=== PATIENT | female | born 1980 | race Caucasian/White ===

== ENCOUNTER 2019-11-01 10:18 | Day surgery (SDC) | payer MEDICAID ==
[~2019-11-01] VITALS: Ht 157.5 cm; Wt 63.2 kg
[~2019-11-01 10:18] MED LIST: RINGERS SOLUTION,LACTATED 1,000 ML IV ONE
[2019-11-01] MEDS ORDERED: PROPOFOL 1% 20 ML VIAL IVP ONE (10:19)
[2019-11-01] MEDS ORDERED: KETAMINE HCL 50 MG/ML 10 ML VIAL IVP ONE (10:19)
[2019-11-01] MEDS ORDERED: LIDOCAINE/PF 2% 5 ML VIAL IM ONE (10:19)
[2019-11-01] MEDS ORDERED: FentaNYL CITRATE-PF 100 MCG/2 ML VIAL IVP ONE (10:19)
[2019-11-01] MEDS ORDERED: MIDAZOLAM HCL 2 MG/2 ML VIAL IVP ONE (10:19)
[2019-11-01] MEDS ORDERED: RINGERS SOLUTION,LACTATED 1,000 ML IV ONE (10:45)
[2019-11-01 11:15] LABS: BASOPHILS % (AUTO) 0.5 % (0.0-2.0); EOSINOPHILS % (AUTO) 3.1 % (1.0-6.0); HEMATOCRIT 38.3 % (36-46); HEMOGLOBIN 12.9 g/dL (12.0-16.0); LYMPHOCYTES # (AUTO) 1.5 K/uL (1.0-4.8); LYMPHOCYTES % (AUTO) 19.2 % (22.0-44.0); MEAN CORPUSCULAR HEMOGLOBIN 29.5 pg (26.0-34.0); MEAN CORPUSCULAR HGB CONC 33.6 G/dL (31.0-37.0); MEAN CORPUSCULAR VOLUME 88 fL (80-100); MONOCYTES # (AUTO) 0.4 K/uL (0.1-1.0); MONOCYTES % (AUTO) 5.5 % (2.0-9.0); NEUTROPHILS # (AUTO) 5.5 K/uL (1.8-7.7); NEUTROPHILS % (AUTO) 71.7 % (40.0-70.0); PLATELET COUNT (AUTO) 310 K/uL (150-450); RED BLOOD CELL COUNT(AUTO) 4.36 MIL/uL (4.00-5.20); RED CELL DISTRIBUTION WIDTH 14.6 % (11.5-14.5)
[2019-11-01] MEDS ORDERED: OXYTOCIN 10 UNITS/ML VIAL IM ONE (12:24)
[2019-11-01] MEDS ORDERED: METHYLERGONOVINE MALEATE 0.2 MG/ML VIAL ONE (12:25)
== END 2019-11-01 14:15 | disposition home or self-care (01) ==
LOC: SURGERY 10:18
PROVIDERS: ATTEND Obstetrics & Gynecology
DX: O02.1 Missed abortion (principal); Z11.59 Encounter for screening for other viral diseases; I42.9 Cardiomyopathy, unspecified; I10 Essential (primary) hypertension; Z98.890 Other specified postprocedural states; Z79.82 Long term (current) use of aspirin
CPT/HCPCS: 36415; 59820; 85025; 86850; 86900; 86901; 87635; 88305; J2250; J2704; J3010; J3490 ×2; J7120; J2210; J2590